=== PATIENT | male | born 1965 | race Caucasian/White ===

== ENCOUNTER 2017-11-19 05:24 | Emergency (ER) | payer BC ==
[2017-11-19 05:50] LABS: ABS Basophils 0.1 10^3/ul (0-0.2); ABS Eosinophils 0.3 10^3/ul (0-0.6); ABS Lymphocytes 2.1 10^3/ul (1.0-4.8); ABS Monocytes 1.1 10^3/ul (0-0.8); ABS Neutrophils 9.4 10^3/ul (1.5-7.7); ABS Nucleated RBC 0 10^3/ul; Eosinophil % 2.4 % (0-6); Hematocrit 42 % (42-52); Hemoglobin 14.2 g/dl (14.0-18.0); Mean Corpuscular HGB Conc 34 g/dl (31-36); Mean Corpuscular Hemoglobin 31 pg (27-31); Mean Corpuscular Volume 90 fL (80-94); Mean Platelet Volume 8.4 um3 (7.4-10.4); Nucleated Red Blood Cells % 0; Platelet Count 233 10^3/ul (150-450); Red Blood Count 4.61 10^6/ul (4.00-5.40); Red Cell Distribution Width 14 % (10.5-15)
[2017-11-19 05:57] LABS: Urine Appearance Clear; Urine Blood 3+ (Negative); Urine Color Yellow; Urine Ketones Negative (Negative); Urine Protein Negative (Negative); Urine Red Blood Cell 3+(>10/hpf) (Absent); Urine Specific Gravity 1.009 (1.010-1.030); Urine Urobilinogen Negative (Negative); Urine White Blood Cell 2+(11-20/hpf) (Absent)
[2017-11-19 05:57] LABS: INR 0.87 (0.77-1.02)
[2017-11-19 06:14] LABS: EGFR Non-African American 84.9 (>60)
[2017-11-19] MEDS ORDERED: Ciprofloxacin TAB* 500 MG PO ONE (06:26)
[2017-11-19 06:58] VITALS: BP 145/84
--- NOTE | 2017-11-19 07:42 | ED ---
GI/ HPI - HPI Summary HPI Summary: Patient is a 52-year-old male nonsmoker otherwise healthy presenting to the ED with burning urination and hematuria 3 days. He states his symptoms have not worsened, but have remained constant. Denies any fevers, sweats, chills. Denies history or chance of STDs. Denies any penile discharge. Denies history of UTI, cryptocortism, hydrocele, varicocele or testicular torsion. Denies any abdominal pain or back pain. No history of kidney stones. He denies any penile lesions or trauma. - History of Current Complaint Chief Complaint: EDUrogenitalProblems Time Seen by Provider: 11/19/17 05:31 Stated Complaint: BLOOD IN URINE Hx Obtained From: Patient Onset/Duration: Started Hours Ago Timing: Constant Severity: Moderate Pain Intensity: 0 Location of Pain: Suprapubic Associated Signs and Symptoms: Positive: Hematuria, Dysuria, UTI Symptoms Aggravating Factor(s): Nothing Alleviating Factor(s): Nothing - Allergy/Home Medications Allergies/Adverse Reactions: Allergies Allergy/AdvReac Type Severity Reaction Status Date / Time No Known Allergies Allergy Verified 11/19/17 05:29 PMH/Surg Hx/FS Hx/Imm Hx Previously Healthy: Yes - Immunization History Hx Pertussis Vaccination: No Immunizations Up to Date: Yes Infectious Disease History: No Infectious Disease History: Denies: Traveled Outside the [place] in Last 30 Days - Social History Occupation: Employed Full-time Lives: With Family Alcohol Use: None Hx Substance Use: No Substance Use Type: Reports: None Smoking Status (MU): Never Smoked Tobacco Review of Systems Constitutional: Negative Negative: Fever, Chills, Fatigue, Skin Diaphoresis Negative: Palpitations, Chest Pain Negative: Shortness Of Breath, Cough Positive: dysuria, hematuria, pain Musculoskeletal: Negative Skin: Negative Psychological: Normal All Other Systems Reviewed And Are Negative: Yes Physical Exam Triage Information Reviewed: Yes Vital Signs On Initial Exam: Initial Vitals Temp Pulse Resp BP Pulse Ox 97.7 F 72 16 129/91 98 11/19/17 05:25 11/19/17 05:25 11/19/17 05:25 11/19/17 05:25 11/19/17 05:25 Vital Signs Reviewed: Yes Appearance: Positive: Well-Appearing, Well-Nourished Skin: Positive: Warm, Skin Color Reflects Adequate Perfusion Head/Face: Positive: Normal Head/Face Inspection Eyes: Positive: EOMI, JOSETTE, Conjunctiva Clear Neck: Positive: Supple, No Lymphadenopathy Respiratory/Lung Sounds: Positive: Clear to Auscultation, Breath Sounds Present Cardiovascular: Positive: RRR, Pulses are Symmetrical in both Upper and Lower Extremities Abdomen Description: Positive: Nontender, No Organomegaly, Soft Musculoskeletal: Positive: Normal, Strength/ROM Intact Neurological: Positive: Speech Normal Psychiatric: Positive: Normal, Affect/Mood Appropriate AVPU Assessment: Alert Diagnostics - Vital Signs Vital Signs Temp Pulse Resp BP Pulse Ox 11/19/17 06:56 97.4 F 68 14 145/84 98 11/19/17 05:25 97.7 F 72 16 129/91 98 - Laboratory Lab Results: Lab Results 11/19/17 11/19/17 11/19/17 Range/Units 05:38 05:43 05:43 WBC 13.0 H (3.5-10.8) 10^3/ul RBC 4.61 (4.00-5.40) 10^6/ul Hgb 14.2 (14.0-18.0) g/dl Hct 42 (42-52) % MCV 90 (80-94) fL MCH 31 (27-31) pg MCHC 34 (31-36) g/dl RDW 14 (10.5-15) % Plt Count 233 (150-450) 10^3/ul MPV 8.4 (7.4-10.4) um3 Neut % (Auto) 72.2 (38-83) % Lymph % (Auto) 16.0 L (25-47) % Page % (Auto) 8.6 H (0-7) % Eos % (Auto) 2.4 (0-6) % Baso % (Auto) 0.8 (0-2) % Absolute Neuts (auto) 9.4 H (1.5-7.7) 10^3/ul Absolute Lymphs (auto) 2.1 (1.0-4.8) 10^3/ul Absolute Monos (auto) 1.1 H (0-0.8) 10^3/ul Absolute Eos (auto) 0.3 (0-0.6) 10^3/ul Absolute Basos (auto) 0.1 (0-0.2) 10^3/ul Absolute Nucleated RBC 0 10^3/ul Nucleated RBC % 0 INR (Anticoag Therapy) 0.87 (0.77-1.02) Sodium (135-145) mmol/L Potassium (3.5-5.0) mmol/L Chloride (101-111) mmol/L Carbon Dioxide (22-32) mmol/L Anion Gap (2-11) mmol/L BUN (6-24) mg/dL Creatinine (0.67-1.17) mg/dL Est GFR ( Amer) (>60) Est GFR (Non-Af Amer) (>60) BUN/Creatinine Ratio (8-20) Glucose (70-100) mg/dL Calcium (8.6-10.3) mg/dL Total Bilirubin (0.2-1.0) mg/dL AST (13-39) U/L ALT (7-52) U/L Alkaline Phosphatase (34-104) U/L Total Protein (6.4-8.9) g/dL Albumin (3.2-5.2) g/dL Globulin (2-4) g/dL Albumin/Globulin Ratio (1-3) Urine Color Yellow Urine Appearance Clear Urine pH 6.0 (5-9) Ur Specific [place] 1.009 L (1.010-1.030) Urine Protein Negative (Negative) Urine Ketones Negative (Negative) Urine Blood 3+ A (Negative) Urine Nitrate Negative (Negative) Urine Bilirubin Negative (Negative) Urine Urobilinogen Negative (Negative) Ur Leukocyte Esterase 1+ A (Negative) Urine WBC (Auto) 2+(11-20/hpf) A (Absent) Urine RBC (Auto) 3+(>10/hpf) A (Absent) Urine Bacteria Absent (Absent) Urine Glucose Negative (Negative) 11/19/17 Range/Units 05:43 WBC (3.5-10.8) 10^3/ul RBC (4.00-5.40) 10^6/ul Hgb (14.0-18.0) g/dl Hct (42-52) % MCV (80-94) fL MCH (27-31) pg MCHC (31-36) g/dl RDW (10.5-15) % Plt Count (150-450) 10^3/ul MPV (7.4-10.4) um3 Neut % (Auto) (38-83) % Lymph % (Auto) (25-47) % Page % (Auto) (0-7) % Eos % (Auto) (0-6) % Baso % (Auto) (0-2) % Absolute Neuts (auto) (1.5-7.7) 10^3/ul Absolute Lymphs (auto) (1.0-4.8) 10^3/ul Absolute Monos (auto) (0-0.8) 10^3/ul Absolute Eos (auto) (0-0.6) 10^3/ul Absolute Basos (auto) (0-0.2) 10^3/ul Absolute Nucleated RBC 10^3/ul Nucleated RBC % INR (Anticoag Therapy) (0.77-1.02) Sodium 136 (135-145) mmol/L Potassium 4.0 (3.5-5.0) mmol/L Chloride 104 (101-111) mmol/L Carbon Dioxide 26 (22-32) mmol/L Anion Gap 6 (2-11) mmol/L BUN 17 (6-24) mg/dL Creatinine 0.94 (0.67-1.17) mg/dL Est GFR ( Amer) 102.8 (>60) Est GFR (Non-Af Amer) 84.9 (>60) BUN/Creatinine Ratio 18.1 (8-20) Glucose 102 H (70-100) mg/dL Calcium 8.8 (8.6-10.3) mg/dL Total Bilirubin 0.40 (0.2-1.0) mg/dL AST 17 (13-39) U/L ALT 26 (7-52) U/L Alkaline Phosphatase 89 (34-104) U/L Total Protein 6.8 (6.4-8.9) g/dL Albumin 4.2 (3.2-5.2) g/dL Globulin 2.6 (2-4) g/dL Albumin/Globulin Ratio 1.6 (1-3) Urine Color Urine Appearance Urine pH (5-9) Ur Specific [place] (1.010-1.030) Urine Protein (Negative) Urine Ketones (Negative) Urine Blood (Negative) Urine Nitrate (Negative) Urine Bilirubin (Negative) Urine Urobilinogen (Negative) Ur Leukocyte Esterase (Negative) Urine WBC (Auto) (Absent) Urine RBC (Auto) (Absent) Urine Bacteria (Absent) Urine Glucose (Negative) Result Diagrams: 11/19/17 05:43 11/19/17 05:43 Lab Statement: Any lab studies that have been ordered have been reviewed, and results considered in the medical decision making process. GIGU Course/Dx - Course Course Of Treatment: Patient is evaluated for burning with urination as well as gross hematuria. He endorses pain with urination which she describes as a burning. Denies any back pain, fevers, sweats, chills. Labs obtained and are WNL other than a slightly elevated white count. Patient states he is feeling otherwise at his baseline. Symptoms present for 3 days. UA obtained which shows 3+ RBCs as well as 2+ WBCs. He will be treated for an uncomplicated UTI, however it was explained to the patient since imaging was not completed, if symptoms persist or worsen he will follow-up with urology. I have given him a referral. Differentials include kidney infection, renal stone, bladder carcinoma, STDs. - Diagnoses Differential Diagnoses - Male: Other - Renal stone, pyelonephritis, STD, penile trauma, bladder carcinoma Provider Diagnoses: UTI (urinary tract infection) Discharge - Sign-Out/Discharge Documenting (check all that apply): Patient Departure - Discharge Plan Condition: Stable Disposition: HOME Prescriptions: Ciprofloxacin TAB* [Cipro 500 MG TAB*] 500 mg PO BID #10 tab Patient Education Materials: Urinary Tract Infection in Men (ED) Referrals: No Primary Care Phys,NOPCP [Primary Care Provider] - Mg Vo MD [Medical Doctor] - Additional Instructions: Please follow-up with urology if symptoms persist Drink plenty of water Ciprofloxacin twice daily 5 days We have given you your first dose here, your next dose is this evening - Billing Disposition and Condition Condition: STABLE Disposition: Home
--- NOTE | 2017-11-22 07:43 | PN ---
Progress Note - Progress Note Date of Service: 11/19/17 Note: Pt. seen in ER 11/19/17 and started on Cipro for UTI. Final urine culture enterococcus faecalis 10-25k susceptible to cipro. No change in treatment needed.
== END 2017-11-19 06:56 | disposition home or self-care (01) ==
LOC: ED 05:24
DX: N39.0 Urinary tract infection, site not specified (principal); R30.0 Dysuria; R31.9 Hematuria, unspecified
CPT/HCPCS: 36415; 80053; 81003; 81015; 85025; 85610; 87077; 87086; 87186; 99282; A9270-GY

== ENCOUNTER → 2018-01-16 23:23 | Emergency (ER) | payer BC ==
[2018-01-17 00:47] VITALS: BP 0/0
== END | disposition left against medical advice (07) ==
LOC: ED 23:23
DX: H57.89 Other specified disorders of eye and adnexa (principal); Z53.21 Procedure and treatment not carried out due to patient leaving prior to being seen by health care provider
CPT/HCPCS: 99282

== ENCOUNTER 2018-09-13 21:02 | Emergency (ER) | payer BC ==
[2018-09-14] MEDS ORDERED: Ketorolac INJ* 30 MG/ML 1 ML VIAL IM ONE (01:17)
--- NOTE | 2018-09-14 01:40 | ED ---
Headache - HPI Summary HPI Summary: 53-year-old male presents with headache for the past couple days. He states that 4 days ago he ended up having a can strike his head. States that his been having intermittent headaches. He has been having difficulties concentrating. Denies any change in vision. He admits to nausea but no vomiting. No dizziness. No neck pain. No other injury. States that he is unable to work due to his headache. He has been taking ibuprofen for the pain. Has history of high blood pressure. He is not able to work due to headache. worked as a susy. - History Of Current Complaint Chief Complaint: EDHeadache Stated Complaint: HEAD PAIN PER PT Time Seen by Provider: 09/13/18 23:38 - Allergies/Home Medications Allergies/Adverse Reactions: Allergies Allergy/AdvReac Type Severity Reaction Status Date / Time No Known Allergies Allergy Verified 09/13/18 21:19 Home Medications: Home Medications NK [No Home Medications Reported] 09/13/18 [History Confirmed 09/13/18] PMH/Surg Hx/FS Hx/Imm Hx Endocrine/Hematology History: Denies: Hx Anticoagulant Therapy Cardiovascular History: Reports: Hx Hypertension Denies: Hx Myocardial Infarction Infectious Disease History: No Infectious Disease History: Denies: Traveled Outside the [place] in Last 30 Days - Family History Known Family History: Positive: Non-Contributory - Social History Alcohol Use: None Hx Substance Use: No Substance Use Type: Reports: None Smoking Status (MU): Never Smoked Tobacco Review of Systems Negative: Fever Negative: Chest Pain Negative: Shortness Of Breath Positive: Headache All Other Systems Reviewed And Are Negative: Yes Physical Exam Triage Information Reviewed: Yes Vital Signs On Initial Exam: Initial Vitals Temp Pulse Resp BP Pulse Ox 98 F 69 18 145/92 97 09/13/18 21:18 09/13/18 21:18 09/13/18 21:18 09/13/18 21:18 09/13/18 21:18 Vital Signs Reviewed: Yes Appearance: Positive: Well-Appearing Skin: Positive: Warm, Dry Head/Face: Positive: Normal Head/Face Inspection Eyes: Positive: Normal, EOMI, JOSETTE, Conjunctiva Clear ENT: Positive: Normal ENT inspection, Pharynx normal, TMs normal Respiratory/Lung Sounds: Positive: Clear to Auscultation, Breath Sounds Present Cardiovascular: Positive: Normal, RRR Abdomen Description: Positive: Nontender, Soft Bowel Sounds: Positive: Present Musculoskeletal: Positive: Normal Neurological: Positive: Sensory/Motor Intact, Alert, Oriented to Person Place, Time, CN Intact II-III Psychiatric: Positive: Affect/Mood Appropriate - [place] Coma Scale Best Eye Response: 4 - Spontaneous Best Motor Response: 6 - Obeys Commands Best Verbal Response: 5 - Oriented Coma Scale Total: 15 Diagnostics - Vital Signs Vital Signs Temp Pulse Resp BP Pulse Ox 09/13/18 23:41 48 100 09/13/18 23:39 50 141/88 97 09/13/18 23:16 97.7 F 65 16 133/99 99 09/13/18 21:18 98 F 69 18 145/92 97 - Laboratory Lab Statement: Any lab studies that have been ordered have been reviewed, and results considered in the medical decision making process. - CT brain CT Interpretation Completed By: Radiologist Summary of CT Findings: IMPRESSION: No intracranial abnormality. Sinus disease. Re-Evaluation - Re-Evaluation First Eval Re-Evaluation Time: 01:43 Comment: discussed results Headache Course/Dx - Course Course Of Treatment: 53-year-old male presents with headache for the past couple days. He states that 4 days ago he ended up having a can strike his head. States that his been having intermittent headaches. He has been having difficulties concentrating. Denies any change in vision. He admits to nausea but no vomiting. No dizziness. No neck pain. No other injury. States that he is unable to work due to his headache. He has been taking ibuprofen for the pain. Has history of high blood pressure. He is not able to work due to headache. On exam has normal neuro exam. With worsening headache got a CT. CT brain normal. Gave concussion precautions. Told to follow with primary. Patient understands agrees with plan. - Diagnoses Differential Diagnosis/HQI/PQRI: Migraine, Tension Headache, Other - concussion Provider Diagnoses: Concussion Discharge - Sign-Out/Discharge Documenting (check all that apply): Patient Departure Patient Received Moderate/Deep Sedation with Procedure: No - Discharge Plan Condition: Good Disposition: HOME Patient Education Materials: Concussion (ED) Referrals: [facility] [Outside] Additional Instructions: Place ice on area as needed Take Tylenol or ibuprofen for headache every 6 hours Modify activities as tolerated Follow up with primary within 5 days Return to ED if develop any new or worsening symptoms - Billing Disposition and Condition Condition: GOOD Disposition: Home
[2018-09-14 01:51] VITALS: BP 141/92
== END 2018-09-14 01:51 | disposition home or self-care (01) ==
LOC: ED 21:02
DX: S06.0X9A Concussion with loss of consciousness of unspecified duration, initial encounter (principal); W22.8XXA Striking against or struck by other objects, initial encounter; I10 Essential (primary) hypertension
CPT/HCPCS: 70450; 96372; 99283; J1885